=== PATIENT | female | born 2000 | race African-American/Black ===

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

== ENCOUNTER 2022-08-27 13:24 | Emergency (ER) | payer OTHER, MEDICAID, SELFPAY ==
--- NOTE | ~2022-08-27 | US_ITS ---
EXAMINATION: US OB <=14 wk fetus w TV INDICATION: pelvic pain TECHNIQUE: Sonography of the pelvis was performed by transabdominal and transvaginal techniques. COMPARISON: None. RESULT: Uterus: Orientation: Anteverted. 6.8 x 3.4 x 5.2 cm. Myometrium: homogeneous echogenicity. The cervi x is long and closed. Gestation: - Intrauterine gestational sac: Single present. - Mean Sac Diameter: 0.46 cm, corresponding gestational age 5 week 2 days. - Yolk sac: None visualized. - Embryo: Not seen. -Subgestational hematoma: Absent . Right ovary: 3.5 x 1.4 x 1.6 cm. Normal sonographic appearance with physiologic follicles. . . Left ovary: 4.0 x 2.3 x 2.1 cm. Normal sonographic appearance with physiologic follicles. . . Pelvis free fluid: None. IMPRESSION: Single, intrauterine gestation of uncertain viability. Recommend continued sonographic follow-up. No sonographic evidence of ectopic . Estimated Gestational Age: 5 weeks, 2 days by crown rump length. ALEKSANDRA by ultrasound 04/27/2023. Reviewed, dictated and finalized at location K. [employer] SYSTEMS ENGINEER IMPRESSION: Single, intrauterine gestation of uncertain viability. Recommend continued sono graphic follow-up. No sonographic evidence of ectopic . Estimated Gestational Age: 5 weeks, 2 days by crown rump length. ALEKSANDRA by ultras ound 04/27/2023.
[2022-08-27 14:22] VITALS: BP 120/74; PULSE 78; RESP 16; TEMP 36.9; O2SAT 100
[2022-08-27 14:44] LABS: Basophils Percent Auto 0.7 % (0.2-1.2); Eosinophils Percent Auto 0.5 % (0-4.4); Hematocrit 30.9 % (37.0-47.0); Hemoglobin 9.4 g/dL (12.0-15.0); Immature Granulocyte Absolute 0.01 K/mm3 (0.00-0.031); Immature Granulocyte Percent A 0.2 % (0-0.5); Lymphocytes Percent Auto 40.9 % (18.3-44.2); Mean Corpuscular HGB Conc 30.4 g/dl (32-36); Mean Corpuscular Hemoglobin 22.8 pg (26-34); Mean Corpuscular Volume 74.8 fl (80-100); Mean Platelet Volume 9.6 fl (7.4-10.4); Monocytes Absolute Auto 0.5 K/mm3 (0.1-0.6); Monocytes Percent Auto 9.2 % (2.6-8.5); Neutrophils Absolute Auto 2.7 K/mm3 (1.3-6.7); Neutrophils Percent Auto 48.5 % (45.5-73.1); Platelet Count Result 329 k/mm3 (150-375); Red Blood Count 4.13 M/mm3 (4.2-5.4); Red Cell Distribution Width 18.1 % (11.5-14.5); White Blood Count 5.6 K/mm3 (4.5-10.0)
[2022-08-27 14:49] LABS: Alanine Aminotransferase 13 U/L (6-35); Albumin Level 4.7 g/dL (3.5-5.1); Alkaline Phosphatase 52 U/L (38-126); Anion Gap 8 mmol/L (8-16); Aspartate Amino Transferase 25 U/L (14-36); Bilirubin,Total 0.3 mg/dL (0.2-1.3); Blood Urea Nitrogen 14 mg/dL (7-17); Calcium 8.9 mg/dL (8.4-10.2); Carbon Dioxide 20 mmol/L (22-30); Chloride 106 mmol/L (98-107); Estimated CRCL calculation 129 ml/min; Estimated Glomerular Filt Rate > 60; Glucose 80 mg/dL (65-110); Lipase 53 U/L (23-300); Potassium 3.8 mmol/L (3.4-5.0); Sodium 134 mmol/L (137-145)
[2022-08-27 15:25] LABS: Hypochromasia 1+ (NORMAL); Platelet Estimate Adequate (Adequate)
[2022-08-27 15:26] LABS: Anisocytosis 2+ (NORMAL)
[2022-08-27 15:27] LABS: Schistocytes None Seen (NORMAL)
[2022-08-27 15:36] LABS: Appearance Urine Clear (Clear); Bilirubin Urine Negative (Negative); Blood Urine Trace-intact (Negative); Color Urine Yellow (Yellow); Glucose Urine UA Negative (Negative); Ketones Urine Negative (Negative); Leukocyte Esterase Ur Negative LEU/UL (Negative); Nitrate Urine Negative (Negative); Protein Urine Negative (Negative); Specific Grav Ur 1.025 (1.001-1.035); Urobilinogen Urine 0.2 mg/dL (<2.0); pH Urine 5.5 (5.0-9.0)
[2022-08-27 15:46] LABS: Mucus Urine Rare /lpf; RBC Urine 0-2 /hpf (0-2); WBC Urine 0-3 /hpf
[2022-08-27 15:52] LABS: Add Urine Microscopic? YES
--- NOTE | 2022-08-28 00:03 | ED.ABDPAIN ---
HPI - Abdominal Pain General Chief Complaint: Abdominal Pain Stated Complaint: abd pain Time Seen by Provider: 08/27/22 17:07 History of Present Illness HPI narrative: Patient is a 22-year-old female who presents ER with lower abdominal pain. Cramping. Radiates across her lower abdomen over the last week. No aggravating or alleviating factors. No urinary symptoms. Denies fevers or chills or sweats. No chest pain or chest pressure. Denies constipation or diarrhea. Related Data Allergies Allergy/AdvReac Type Severity Reaction Status Date / Time amoxicillin Allergy Intermediate Verified 02/08/16 19:43 Review of Systems Review of Systems: All systems reviewed & are unremarkable except as noted in HPI and below Constitutional: Constitutional: Denies chills, Denies fatigue and Denies fever(s) ENT: Denies nasal congestion and Denies sore throat Cardiovascular: Cardiovascular: Denies chest pain and Denies radiating jaw, neck or arm pain Respiratory: Respiratory: Denies cough and Denies dyspnea Gastrointestinal: Gastrointestinal: Reports abdominal pain, Denies constipation, Denies diarrhea, Denies nausea and Denies vomiting Genitourinary: Genitourinary: Denies nocturia, Denies dysuria and Denies flank pain PMFSH Past Medical History Medical History (Updated 08/28/22 @ 22:50 by Sherwin Burkett MD) No pertinent past medical history Surgical History Surgical History (Updated 08/28/22 @ 22:49 by Sherwin Burkett MD) No pertinent past surgical history Exam Narrative: GENERAL: Well-appearing, well-nourished, and in no acute distress. HEAD: Normocephalic, atraumatic. CHEST: Clear to auscultation. No respiratory distress. HEART: Regular rate and rhythm. Normal peripheral pulses. ABDOMEN: Soft, tender palpation right lower quadrant, nondistended. EXTREMITIES: Normal range of motion. No edema. SKIN: Warm, dry, no rash. NEURO: Alert and oriented x3. PSYCH: Normal mood and affect. Course Course Emergency Course: Patient does not have ectopic . Patient did not receive results from January due to a critical patient in the department and patient walked out. Vital Signs Vital signs: Vital Signs Temperature 98.4 F 08/27/22 14: Pulse Rate 78 08/27/22 14:22 Respiratory Rate 16 12/12/22 14:22 Blood Pressure 120/74 12/12/22 14:22 Pulse Oximetry 100 08/27/22 14:22 Oxygen Delivery Room Air 08/27/22 14:22 Temperature 98.4 F 08/27/22 14:22 Pulse Rate 78 08/27/22 14:22 Respiratory Rate 16 08/27/22 14:22 Blood Pressure 120/74 08/27/22 14:22 Pulse Oximetry 100 08/27/22 14:22 Oxygen Delivery Room Air 08/27/22 14:22 MDM - Abdominal Pain Lab Data 08/27/22 14:32 08/27/22 14:32 Labs: Lab Results 08/27/22 08/27/22 08/27/22 Range/Units 14:32 14:32 14:32 WBC 5.6 (4.5-10.0) K/mm3 RBC 4.13 L (4.2-5.4) M/mm3 Hgb 9.4 L (12.0-15.0) g/dL Hct 30.9 L (37.0-47.0) % MCV 74.8 L (80-100) fl MCH 22.8 L (26-34) pg MCHC 30.4 L (32-36) g/dl RDW 18.1 H (11.5-14.5) % Plt Count 329 (150-375) k/mm3 MPV 9.6 (7.4-10.4) fl Immature Gran % (Auto) 0.2 (0-0.5) % Neut % (Auto) 48.5 (45.5-73.1) % Lymph % (Auto) 40.9 (18.3-44.2) % Swain % (Auto) 9.2 H (2.6-8.5) % Eos % (Auto) 0.5 (0-4.4) % Baso % (Auto) 0.7 (0.2-1.2) % Lymph # (Auto) 2.30 (0.9-3.2) K/mm3 Swain # (Auto) 0.5 (0.1-0.6) K/mm3 Eos # (Auto) 0.0 (0-0.3) K/mm3 Baso # (Auto) 0.0 (0.0-0.1) K/mm3 Abs Immat Gran (auto) 0.01 (0.00-0.031) K/mm3 Absolute Neuts (auto) 2.7 (1.3-6.7) K/mm3 Absolute Nucleated RBC 0.0 (0.0-0.012) K/mm3 Nucleated RBC % 0.0 (0.0-0.2) % Platelet Estimate Adequate (Adequate) Hypochromasia 1+ (NORMAL) Anisocytosis 2+ (NORMAL) Schistocytes None seen (NORMAL) Sodium 134 L (137-145) mmol/L Potassium 3.8 (3.4-5.0) mmol/L Chloride
== END 2022-08-27 20:57 | disposition left against medical advice (07) ==
PROVIDERS: Emergency Medicine; Emergency Provider Emergency Medicine
DX: O26.891 Other specified pregnancy related conditions, first trimester (principal); R10.30 Lower abdominal pain, unspecified; Z3A.01 Less than 8 weeks gestation of pregnancy
CPT/HCPCS: 36415; 76801; 76817; 80053; 81001; 83690; 84702; 85025; 99284

== ENCOUNTER 2023-05-02 11:18 | Observation (INO) | payer OTHER, SELFPAY ==
--- NOTE | ~2023-05-02 | CT_ITS ---
EXAMINATION: CT abdomen pelvis w con DATE: 05/02/2023 14:25 INDICATION: Abdominal and pelvic pain. . TECHNIQUE: Computed tomography (CT) of the abdomen and pelvis was performed with 100 mL Omnipaque 350 intravenous contrast. Automated exposure control and iterative reconstruction technique were employe d. The dose-length product was 434.88 mGy-cm. COMPARISON: None. FINDINGS: The visualized portions of the lung bases are clear without pneumonia. There are trace pleu ral effusions. The heart size is normal. No pericardial effusion. The liver, gallbladder, spleen, onofre creas, adrenal glands, are normal. The kidneys demonstrate striated nephrograms, consistent with pyel onephritis. The endometrial complex measures 10 mm in thickness. There is an umbilical hernia contain ing fat. There are no dilated loops of bowel. The appendix is normal. There are no pathologically enl arged lymph nodes. There is no free intraperitoneal fluid. The bones are unremarkable. IMPRESSION: 1. Bilateral pyelonephritis. Reviewed, dictated and finalized at location A.
[2023-05-02 11:20] VITALS: BP 122/75; RESP 16; TEMP 37; O2SAT 100
[2023-05-02 11:55] LABS: Basophils Percent Auto 0.2 % (0.2-1.2); Eosinophils Percent Auto 0.1 % (0-4.4); Hematocrit 32.7 % (37.0-47.0); Hemoglobin 10.7 g/dL (12.0-15.0); Immature Granulocyte Absolute 0.07 K/mm3 (0.00-0.031); Immature Granulocyte Percent A 0.4 % (0-0.5); Lymphocytes Absolute Auto 0.66 K/mm3 (0.9-3.2); Mean Corpuscular HGB Conc 32.7 g/dl (32-36); Mean Corpuscular Hemoglobin 29.1 pg (26-34); Mean Corpuscular Volume 88.9 fl (80-100); Mean Platelet Volume 9.6 fl (7.4-10.4); Monocytes Absolute Auto 0.6 K/mm3 (0.1-0.6); Monocytes Percent Auto 3.4 % (2.6-8.5); Neutrophils Absolute Auto 15.1 K/mm3 (1.3-6.7); Neutrophils Percent Auto 91.9 % (45.5-73.1); Platelet Count Result 265 k/mm3 (150-375); Red Blood Count 3.68 M/mm3 (4.2-5.4); Red Cell Distribution Width 20.4 % (11.5-14.5); White Blood Count 16.4 K/mm3 (4.5-10.0)
[2023-05-02 12:06] LABS: Alanine Aminotransferase 25 U/L (6-35); Albumin Level 3.3 g/dL (3.5-5.1); Alkaline Phosphatase 117 U/L (38-126); Anion Gap 4 mmol/L (8-16); Aspartate Amino Transferase 25 U/L (14-36); Bilirubin,Total 0.4 mg/dL (0.2-1.3); Blood Urea Nitrogen 16 mg/dL (7-17); Calcium 8.2 mg/dL (8.4-10.2); Carbon Dioxide 17 mmol/L (22-30); Chloride 111 mmol/L (98-107); Estimated Glomerular Filt Rate > 60; Glucose 91 mg/dL (65-110); Lipase 32 U/L (23-300); Potassium 3.4 mmol/L (3.4-5.0); Sodium 132 mmol/L (137-145)
[2023-05-02 12:19] LABS: Appearance Urine Cloudy (Clear); Bacteria Urine 4+ /hpf; Bilirubin Urine Negative (Negative); Blood Urine 3+ (Negative); Color Urine Yellow (Yellow); Glucose Urine UA Negative (Negative); Ketones Urine 3+ mg/dL (Negative); Leukocyte Esterase Ur 3+ LEU/UL (Negative); Nitrate Urine Negative (Negative); Non Pathogenic Casts 0-2; Protein Urine 2+ mg/dL (Negative); RBC Urine 21-50 /hpf (0-2); Specific Grav Ur 1.027 (1.001-1.035); Squamous Epithelial Cell Urine Few /hpf (Few); WBC Urine >100 /hpf; pH Urine 6.5 (5.0-9.0)
[2023-05-02 12:32] LABS: Add Urine Microscopic? YES
--- NOTE | 2023-05-02 14:45 | ED.FEMALEGU ---
HPI - Female Genitourinary General Chief complaint: MEDIA ASSISTANT <Nika Alexis PA-C - Last Filed: 05/02/23 17:50> Stated complaint: ABD CRAMPING S/P VAG DELIVERY <MARÍA Baker Last Filed: 05/02/23 17:50> Time Seen by Provider: 05/02/23 13:02 <MARÍA Baker Last Filed: 05/02/23 17:50> Source: patient <MARÍA Baker Last Filed: 05/02/23 17:50> Mode of arrival: ambulatory <MARÍA Baker Last Filed: 05/02/23 17:50> Limitations: no limitations <MARÍA Baker Last Filed: 05/02/23 17:50> History of Present Illness HPI Narrative: This is a 22 year old female that presents to the ER for pelvic pain, 4 days post-. Associated with dysuria. Reports only mild vaginal bleeding. Reports uncomplicated vaginal delivery. She follows with [facility]. Reports subjective fever. Denies diarrhea, vomiting, or hematuria. <Nika Alexis PA-C - Last Filed: 05/02/23 17:50> Related Data Home medications: Home Medications Medication Instructions Recorded Confirmed ibuprofen 600 mg tablet 600 mg PO Q6H PRN Pain 05/02/23 05/02/23 <MARÍA Baker Last Filed: 05/02/23 17:50> Allergies/Adverse reactions: Allergies Allergy/AdvReac Type Severity Reaction Status Date / Time latex Allergy Severe Swelling Verified 05/02/23 18:46 amoxicillin Allergy Intermediate Unknown Verified 05/02/23 12:07 <MARÍA Baker Last Filed: 05/02/23 17:50> Review of Systems Review of Systems: CONSTITUTIONAL: Reports fever GASTROINTESTINAL: Reports abdominal pain. Denies nausea, vomiting, or diarrhea. GENITOURINARY: Reports dysuria. Denies hematuria. <MARÍA Baker Last Filed: 05/02/23 17:50> All systems reviewed & are unremarkable except as noted in HPI and below <Nika Alexis PA-C - Last Filed: 05/02/23 17:50> [facility] Past Medical History Medical History: Medical History (Updated 05/02/23 @ 14:48 by Nika Alexis PA-C) No pertinent past medical history <Nika Alexis PA-C - Last Filed: 05/02/23 17:50> Surgical History Surgical History: Surgical History (Updated 08/28/22 @ 22:49 by Sherwin Burkett MD) No pertinent past surgical history <Nika Alexis PA-C - Last Filed: 05/02/23 17:50> Social History Social History: Social History (Updated 05/02/23 @ 17:36 by Nika Alexis PA-C) Smoking status: Former smoker Additional smoking assessment comments: marijuana usage; 1 year usage; 2021; quit at Alcohol intake: never Substance use: former Substance use type: marijuana Last use: quit when found out Lack of Transportation: No Lack of Food: Never True Current Housing: I Have Housing Concerned About Future Housing: No Difficulty Paying Gas/Electric Bills: No Difficulty Paying for Meds: No Currently Unemployed: YES Education: High School Diploma/GED Difficulty w/ Childcare or Family Care: No Spiritual care concerns: No <Nika Alexis PA-C - Last Filed: 05/02/23 17:50> Exam Narrative: GENERAL: Well-appearing, well-nourished, and in no acute distress. HEAD: Normocephalic, atraumatic. EYES: EOMI. CHEST: Clear to auscultation. No respiratory distress. No wheezes rales or rhonchi HEART: Regular rate and rhythm. No murmur heard. Normal peripheral pulses. ABDOMEN: Soft, nondistended, normal active bowel sounds. Tender to palpation of the lower abdomen/pelvis EXTREMITIES: Normal range of motion. No edema. SKIN: Warm, dry, no rash. NEURO: No focal deficits. Alert and oriented x3. PSYCH: Normal mood and affect <Nika Alexis PA-C - Last Filed: 05/02/23 17:50> Course Course Emergency Course: Patient was updated on work-up and agrees with admission for further management <Nika Alexis PA-C - Last Filed: 05/02/23 17:50> RADIO FREQUENCY ENGINEER/PA Physician Supervision For this patient encounter, I reviewed the RADIO FREQUENCY ENGINEER or
--- NOTE | 2023-05-02 15:05 | ECG_ITS ---
Measurements Intervals [place] Rate: 86 P: 56 GA: 158 QRS: 77 QRSD: 76 T: 36 QT: 343 QTc: 410 Interpretive Statements SINUS RHYTHM NORMAL ELECTROCARDIOGRAM NO PREVIOUS ECG AVAILABLE FOR COMPARISON Electronically Signed On 05-03-2023 7:37:42 CDT by Eloy Alves M.D.
[2023-05-02] MEDS: SODIUM CHLORIDE 0.9% IV 1,000 ML 999 ML IV CONT (15:12)
[2023-05-02 15:46] VITALS: BP 118/72; PULSE 82; RESP 17; O2SAT 99
[2023-05-02 18:31] VITALS: BMI 26.6
--- NOTE | 2023-05-02 18:39 | ADMGEN ---
This patient, Vinicio Doty, was admitted to [facility] Surg Room 300-01. Patient/family oriented to hospital policies and general routines including ID bracelet, bed and alarms, visiting hours, pain management, procedures, bathroom and other care routines, personal items, smoking policy, room service/diet, and visiting hours. Information on how to activate the Rapid Response Team has been discussed. Patient/Family are encouraged to report perceived risks to care and to ask questions if they do not understand what they are told or what they should do.
[2023-05-02 18:45] VITALS: BP 151/81; PULSE 90; RESP 18; TEMP 36.5; O2SAT 100; BMI 26.6
[2023-05-02 18:46] VITALS: BP 151/81; PULSE 90; RESP 18; TEMP 36.5; O2SAT 100
[2023-05-02 20:16] VITALS: BP 130/82; PULSE 89; RESP 18; TEMP 36.6; O2SAT 100
[2023-05-02] MEDS: IBUPROFEN 600 MG TABLET PO (22:43)
[2023-05-02] MEDS: ACETAMINOPHEN 500 MG TABLET 1000 MG PO (22:44)
--- NOTE | 2023-05-02 23:22 | PC.NURSE ---
Addendum entered by Maxine Sung RN 05/03/23 06:44: Took AM vitals on this pt and asked pt if she was willing to have IV reinserted this morning, pt refused at this time because she wants to be more informed about plan of care. Will notify dayshift RN when arrives. Original Note: When assessing pt, pt upset because plan of care was not explained well and was in pain. Pt also asked for IV to be taken out because arm was hurting. Took IV out and explained that she will be needing to be re-stuck because she will be receiving antibiotics for her dx. She stated she understood. Asked another nurse on the floor to insert IV, but nurse said that pt would like to not be stuck at the moment. Will attempt to insert IV later when pt more calm.
[2023-05-03] MEDS: HYDROcodone/acetaminophen (*CRX) 5-325 MG TABLET 1 TAB PO (00:13)
[2023-05-03 06:04] VITALS: BP 132/94; PULSE 62; RESP 14; TEMP 35.8; O2SAT 100
--- NOTE | 2023-05-03 07:29 | PM.IMHP ---
H&P: HPI History of Present Illness Date/Time: 05/03/23 07:29 Chief Complaint: Pyelonephritis Narrative: 23-year-old 2 para 1 aborta 1 admitted through the emergency room with bilateral pyelonephritis by CT scan. Patient is now 5 days from a normal spontaneous vaginal delivery. Patient states that her labor lasted [id number] and that she did have an epidural and Sims catheter. Patient had onset of urinary frequency and urgency 1 day . She had onset of dysuria the day of admission. Patient denies back pain and abdominal cramping today is mild. Overnight the patient IV was uncomfortable and she insisted on it being removed. She declined having it restarted. Patient threatened to leave AMA overnight. I was not informed of any of these events until this morning on my arrival. Review of Systems Review of Systems: All systems reviewed & are unremarkable except as noted in HPI and below (HPI) [facility] Past Medical History Medical History (Updated 05/03/23 @ 07:37 by Louise Worthy MD) (normal spontaneous vaginal delivery) Surgical History Surgical History (Updated 08/28/22 @ 22:49 by Sherwin Burkett MD) No pertinent past surgical history Social History Social History (Updated 05/02/23 @ 17:36 by Nika Alexis PA-C) Smoking status: Former smoker Additional smoking assessment comments: marijuana usage; 1 year usage; 2021; quit at Alcohol intake: never Substance use: former Substance use type: marijuana Last use: quit when found out Lack of Transportation: No Lack of Food: Never True Current Housing: I Have Housing Concerned About Future Housing: No Difficulty Paying Gas/Electric Bills: No Difficulty Paying for Meds: No Currently Unemployed: YES Education: High School Diploma/GED Difficulty w/ Childcare or Family Care: No Spiritual care concerns: No Meds Home Medications and Allergies Home Medications Medication Instructions Recorded Confirmed Type ibuprofen 600 mg tablet 600 mg PO Q6H PRN Pain 05/02/23 05/02/23 History Allergies Allergy/AdvReac Type Severity Reaction Status Date / Time latex Allergy Severe Swelling Verified 05/02/23 18:46 amoxicillin Allergy Intermediate Unknown Verified 05/02/23 12:07 Vital Signs Vital Signs - 24 hr 05/02/23 11:20 05/02/23 15:46 05/02/23 18:45 Temperature 98.6 F 97.7 F Pulse Rate 82 90 Respiratory Rate 16 17 18 Blood Pressure 122/75 118/72 151/81 H Pulse Oximetry 100 99 100 Oxygen Delivery Room Air 05/02/23 20:16 05/02/23 22:40 05/03/23 06:04 Temperature 97.8 F 96.5 F L Pulse Rate 89 62 Respiratory Rate 18 14 Blood Pressure 130/82 132/94 H Pulse Oximetry 100 100 Oxygen Delivery Room Air 05/02/23 18:46 Temperature 97.7 F Pulse Rate 90 Respiratory Rate 18 Blood Pressure 151/81 H Pulse Oximetry 100 Oxygen Delivery Exam Const: General: comfortable, no acute distress and other ( lying in bed and moving without obvious signs of discomfort) Nutritional Appearance: average body habitus Resp: Effort & Inspection: normal respiratory effort GI: GI Palp: No abdominal tenderness and Yes Other GI palpation findings present ( fundus at U -4 nontender) Back/Spine/Pelvis: Thoracic/Lumbar Spine: other ( no CVA tenderness) H&P: Results Labs Labs: Short CBC 05/02/23 Range/Units 11:45 WBC 16.4 H (4.5-10.0) K/mm3 Hgb 10.7 L (12.0-15.0) g/dL Hct 32.7 L (37.0-47.0) % Plt Count 265 (150-375) k/mm3 BMP 05/02/23 11:46 Sodium 132 L Potassium 3.4 Chloride 111 H Carbon Dioxide 17 L BUN 16 Creatinine 0.50 L Glucose 91 Calcium 8.2 L Liver Function 05/02/23 Range/Units 11:46 Total Bilirubin 0.4 (0.2-1.3) mg/dL AST 25 (14-36) U/L ALT 25 (6-35) U/L Alkaline Phosphatase 117 (38-126) U/L Albumin 3.3 L (3.5-5.1) g/dL Urine 05/02/23 Range/Units 12:03 Uri
--- NOTE | 2023-05-03 07:40 | PM.DS ---
DS: Admitting Diagnosis Discharge Date 05/03/23 Admitting Diagnosis pyelonephritis day 5 DS: Discharge Diagnosis Discharge Diagnosis (1) Pyelonephritis: Code(s): N12 - Tubulo-interstitial nephritis, not specified as acute or chronic Status: Acute Assessment and Plan: Patient received Rocephin IV in the emergency room and will receive 1 dose IM prior to discharge. Keflex 500mg 3 times daily for 10 days written upon discharge. Recommend follow up with her physician next week. (2) Elevated blood pressure reading: Code(s): R03.0 - Elevated blood-pressure reading, without diagnosis of hypertension Status: Acute Assessment and Plan: Recommend follow-up with her physician next week. Likely due to patient being upset. Most blood pressures in normal range. No PIH symptoms. (3) (normal spontaneous vaginal delivery): Code(s): O80 - Encounter for full-term uncomplicated delivery Status: Acute Assessment and Plan: day 5. Patient delivered in [place] with Dr. Butts. Follow-up with her physician. DS: Summary Hospital Course Reason for hospitalization: pyelonephritis Hospital Course: The patient was admitted through the emergency room with bilateral pyelonephritis by CT scan. Patient with minimal clinical signs. Patient given IV Rocephin x1 in the emergency room and to to her refusing to have a new IV started and insisting on the current IV being removed patient received no IV fluids after admission and will be receiving IM Rocephin at the approximate 24hour mirela from the 1st dose. She will go home on Keflex 500mg t.i.d.. Status at Discharge Functional status at discharge: independent ambulation Overall status at discharge: patient is progressing back to baseline Time Spent with Patient Time attestation: Total time spent providing and/or coordinating discharge services: Time spent: Less than 30 minutes DS: Data Data Completed and Pending Labs on day of discharge: Labs from last 24 hours 05/02/23 05/02/23 05/02/23 12:03 11:46 11:45 WBC 16.4 H RBC 3.68 L Hgb 10.7 L Hct 32.7 L MCV 88.9 MCH 29.1 MCHC 32.7 RDW 20.4 H Plt Count 265 MPV 9.6 Immature Gran % (Auto) 0.4 Neut % (Auto) 91.9 H Lymph % (Auto) 4.0 L Cole % (Auto) 3.4 Eos % (Auto) 0.1 Baso % (Auto) 0.2 Lymph # (Auto) 0.66 L Cole # (Auto) 0.6 Eos # (Auto) 0.0 Baso # (Auto) 0.0 Abs Immat Gran (auto) 0.07 H Absolute Neuts (auto) 15.1 H Absolute Nucleated RBC 0.0 Nucleated RBC % 0.0 Sodium 132 L Potassium 3.4 Chloride 111 H Carbon Dioxide 17 L Anion Gap 4 L BUN 16 Creatinine 0.50 L Estim Creat Clear Calc Not Reportable Estimated GFR > 60 Glucose 91 Calcium 8.2 L Total Bilirubin 0.4 AST 25 ALT 25 Alkaline Phosphatase 117 Total Protein 7.0 Albumin 3.3 L Lipase 32 Urine Color Yellow Urine Appearance Cloudy H Urine pH 6.5 Ur Specific Wister 1.027 Urine Protein 2+ H Urine Glucose (UA) Negative Urine Ketones 3+ H Ur Blood (Man) 3+ H Urine Nitrate Negative Urine Bilirubin Negative Urine Urobilinogen 2.0 H Leukocyte Esterase Rfl 3+ H Urine RBC 21-50 H Urine WBC >100 H Ur Squamous Epith Cells Few Urine Bacteria 4+ H Urine Casts 0-2 Discharge Plan Discharge Attending physician on discharge: Louise Worthy Discharging Clinician: Louise Worthy Anticipated Discharge Date/Time: 05/03/23 13:00 Patient Disposition: Home, Self-Care Activity: may shower and pelvic rest Diet: regular Patient Instructions: Antibiotic Form, Pain Management (GEN) Stand Alone Forms: General Discharge Information Follow-up/Referrals: PHYSICIAN NOT ON STAFF,NONSTAFF [Primary Care Provider] - 1 Week ( Call her coordinator of rehabilitation services at [facility]) Discharge Medications: No Ac
[2023-05-03 14:00] VITALS: BP 140/92; PULSE 69; RESP 18; TEMP 36.1; O2SAT 100
[2023-05-03] MEDS: IBUPROFEN 600 MG TABLET PO (14:45)
[2023-05-03] MEDS: polyethylene glycoL 3350 17 GM POWD.PACK PO (14:45)
[2023-05-03] MEDS: DOCUSATE SODIUM 100 MG CAPSULE PO (14:45)
[2023-05-03] MEDS: cefTRIAXone 1 GM VIAL IM (14:46)
== END 2023-05-03 16:45 | disposition home or self-care (01) ==
LOC: ANHED 17:43 → ANH3MEDSUR 17:58
PROVIDERS: General Practice; Admitting Provider Obstetrics & Gynecology Gynecology; Emergency Provider Physician Assistant; Visit Provider Obstetrics & Gynecology Gynecology
DX: O90.89 Other complications of the puerperium, not elsewhere classified (principal); O86.21 Infection of kidney following delivery; B95.2 Enterococcus as the cause of diseases classified elsewhere; Z79.1 Long term (current) use of non-steroidal anti-inflammatories (NSAID); O16.5 Unspecified maternal hypertension, complicating the puerperium; R03.0 Elevated blood-pressure reading, without diagnosis of hypertension; Z87.891 Personal history of nicotine dependence
CPT/HCPCS: 36415; 74177; 80053; 81001; 83690; 85025; 87040; 87086; 87147; 87181; 87186; 93005; 96365; 96372; 99285; A9270; G0378; J0696; J7030; Q9967

== ENCOUNTER 2023-10-30 11:02 | Emergency (ER) | payer OTHER, SELFPAY ==
--- NOTE | ~2023-10-30 | US_ITS ---
EXAMINATION: US OB <=14 wk fetus w TV DATE: 10/30/2023 15:52 INDICATION: Left lower quadrant abdominal pain. TECHNIQUE: Real-time transabdominal and transvaginal pelvic ultrasound was performed. COMPARISON: None. FINDINGS: TRANSABDOMINAL ULTRASOUND: The uterus measures 9.2 x 5.3 x 7.1 cm. TRANSVAGINAL ULTRASOUND: There is an intrauterine gestational sac. A yolk sac is identified. The fet al crown rump length measures 8 mm, which correlates with an estimated gestational age of 6 weeks and 5 day(s) (+/-) 4 day(s). heart motion is identified measuring 112 beats per minute (bpm) by M- mode Doppler. There is a small subchorionic hematoma. The right ovary measures 1.8 x 3.0 x 1.8 cm. Th e left ovary measures 1.3 x 2.1 x 1.4 cm. There is physiologic free fluid in the pelvis. IMPRESSION: 1. Single living intrauterine gestation with estimated date of delivery of 06/19/2024. 2. Small subchorionic hematoma. Reviewed, dictated and finalized at location A. [employer]
[2023-10-30 11:10] VITALS: BP 138/99; PULSE 77; RESP 16; TEMP 36.4; O2SAT 100
[2023-10-30 11:35] LABS: Basophils Percent Auto 0.5 % (0.2-1.2); Eosinophils Absolute Auto 0.1 K/mm3 (0-0.3); Eosinophils Percent Auto 1.2 % (0-4.4); Hematocrit 39.1 % (37.0-47.0); Hemoglobin 12.4 g/dL (12.0-15.0); Immature Granulocyte Absolute 0.02 K/mm3 (0.00-0.031); Immature Granulocyte Percent A 0.3 % (0-0.5); Lymphocytes Absolute Auto 2.76 K/mm3 (0.9-3.2); Lymphocytes Percent Auto 36.8 % (18.3-44.2); Mean Corpuscular HGB Conc 31.7 g/dl (32-36); Mean Corpuscular Hemoglobin 27.6 pg (26-34); Mean Corpuscular Volume 87.1 fl (80-100); Mean Platelet Volume 9.7 fl (7.4-10.4); Monocytes Absolute Auto 0.5 K/mm3 (0.1-0.6); Monocytes Percent Auto 6.3 % (2.6-8.5); Neutrophils Absolute Auto 4.1 K/mm3 (1.3-6.7); Neutrophils Percent Auto 54.9 % (45.5-73.1); Platelet Count Result 345 k/mm3 (150-375); Red Blood Count 4.49 M/mm3 (4.2-5.4); Red Cell Distribution Width 15.1 % (11.5-14.5); White Blood Count 7.5 K/mm3 (4.5-10.0)
[2023-10-30 11:45] LABS: Alanine Aminotransferase 11 U/L (6-35); Albumin Level 4.4 g/dL (3.5-5.1); Alkaline Phosphatase 64 U/L (38-126); Anion Gap 8 mmol/L (8-16); Aspartate Amino Transferase 25 U/L (14-36); Bilirubin,Total 0.3 mg/dL (0.2-1.3); Blood Urea Nitrogen 14 mg/dL (7-17); Carbon Dioxide 21 mmol/L (22-30); Chloride 107 mmol/L (98-107); Estimated CRCL calculation 109 ml/min; Estimated Glomerular Filt Rate > 60; Glucose 90 mg/dL (65-110); Potassium 3.9 mmol/L (3.4-5.0); Sodium 136 mmol/L (137-145)
[2023-10-30 11:46] LABS: Appearance Urine Clear (Clear); Bacteria Urine 1+ /hpf; Bilirubin Urine Negative (Negative); Blood Urine Negative (Negative); Color Urine Yellow (Yellow); Glucose Urine UA Negative (Negative); Ketones Urine Trace mg/dL (Negative); Leukocyte Esterase Ur Negative LEU/UL (Negative); Nitrate Urine Negative (Negative); Non Pathogenic Casts 0-2; Protein Urine Trace mg/dL (Negative); RBC Urine 0-2 /hpf (0-2); Squamous Epithelial Cell Urine Few /hpf (Few); WBC Urine 0-5 /hpf
[2023-10-30 11:49] LABS: Add Urine Microscopic? YES
[2023-10-30 12:56] VITALS: BP 126/82; PULSE 77; RESP 17; O2SAT 100
--- NOTE | 2023-10-30 13:27 | ED.BACK ---
HPI - Back Pain/Injury General Chief Complaint: Back Pain/Injury Stated Complaint: flank pain Time Seen by Provider: 10/30/23 13:00 History of Present Illness HPI Narrative: Patient is a 23-year-old female who presents to the emergency department this afternoon complaining of left flank pain. Patient states that pain started last night and has been constant until today. Pain originates in the left flank and radiates to the left lower quadrant of her abdomen. Patient admits that this pain feels similar to when she had a kidney infection shortly after she delivered her baby this past April. She is currently denying any fevers or chills at home, denies any urinary symptoms including dysuria or hematuria. Patient denies any heavy lifting or recent back trauma. Patient also denies not really having an appetite and being unable to keep food down. It she admits that whenever she eats, within 30 minutes she vomits everything she ate. Patient denies any chance of states she is not sexually active. The remainder of history of present illness review of systems negative unless stated otherwise in HPI. Related Data Home Medications Medication Instructions Recorded Confirmed ibuprofen 600 mg tablet 600 mg PO Q6H PRN Pain 05/02/23 05/02/23 Allergies Allergy/AdvReac Type Severity Reaction Status Date / Time latex Allergy Severe Swelling Verified 10/30/23 12:53 amoxicillin Allergy Intermediate Unknown Verified 10/30/23 12:53 Review of Systems Review of Systems: All systems are reviewed and are negative unless stated otherwise in the HPI. [facility] Past Medical History Medical History (normal spontaneous vaginal delivery) Surgical History Surgical History No pertinent past surgical history Social History Social History Smoking status: Former smoker Additional smoking assessment comments: marijuana usage; 1 year usage; 2021; quit at Alcohol intake: never Substance use: former Substance use type: marijuana Last use: quit when found out Lack of Transportation: No Lack of Food: Never True Current Housing: I Have Housing Concerned About Future Housing: No Difficulty Paying Gas/Electric Bills: No Difficulty Paying for Meds: No Currently Unemployed: YES Education: High School Diploma/GED Difficulty w/ Childcare or Family Care: No Spiritual care concerns: No Comments Denies any significant family history. Exam Narrative: General: Alert, awake, afebrile, in no acute distress. HEENT: PERRL, no rhinorrhea, no post nasal drip, oropharynx clear. Neck: Trachea midline, no JVD, no lymphadenopathy. Cardiovascular: Regular rate and rhythm, no murmurs, rubs or gallops, no peripheral edema. Respiratory: Clear to auscultation bilaterally, no tachypnea, no wheezing, no rhonchi, no rubs, no respiratory distress. Abdomen: Soft, tenderness palpation over the left lower quadrant, nondistended, no rebound, no guarding, no peritoneal signs. Musculoskeletal: No joint swelling or deformity, normal muscle tone. Skin: No rashes or petechia, no signs of infection. Psychiatric: Alert and oriented, normal behavior and judgment for situation. Neurological: Alert and oriented to person, place, and time. Follows all commands. No focal deficits, speech is clear and fluent. Course Vital Signs Vital signs: Vital Signs Temperature 97.6 F 10/30/23 11:10 Pulse Rate 77 10/30/23 11:10 Respiratory Rate 16 10/30/23 11:10 Blood Pressure 138/99 H 10/30/23 11:10 Pulse Oximetry 100 10/30/23 11:10 Oxygen Delivery Room Air 10/30/23 11:10 Temperature 98.0 F 10/30/23 16:04 Pulse Rate 86 10/30/23 16:04 Respiratory Rate 19 10/30/23 16:04 Blood Pressure 142/88 H 10/30/23 16:04 Pulse Oximetry 100
[2023-10-30] MEDS: SODIUM CHLORIDE 0.9% IV 1,000 ML 999 ML IV CONT (13:32)
[2023-10-30 16:04] VITALS: BP 142/88; PULSE 86; RESP 19; TEMP 36.7; O2SAT 100
[2023-10-30] MEDS: MECLIZINE HCL 25 MG TABLET PO (16:29)
== END 2023-10-30 16:38 | disposition home or self-care (01) ==
PROVIDERS: Emergency Medicine; Emergency Provider Emergency Medicine
DX: O26.891 Other specified pregnancy related conditions, first trimester (principal); R10.9 Unspecified abdominal pain; R82.71 Bacteriuria; Z87.891 Personal history of nicotine dependence; Z3A.01 Less than 8 weeks gestation of pregnancy
CPT/HCPCS: 36415; 76801; 76817; 80053; 81001; 81025; 84702; 85025; 96360; 96361; 99284; A9270; J7030